=== PATIENT | male | born 1940 | race Caucasian/White ===

== ENCOUNTER 2018-01-22 10:40 | Day surgery (SDC) | payer MEDICARE ==
[2018-01-22] VITALS (10 sets, daily range): BP systolic 110–153; BP diastolic 51–83
[~2018-01-22] VITALS: Ht 167.6 cm; Wt 75.5 kg
[2018-01-22] MEDS ORDERED: normal saline 1000ml 1,000 ML IV SCH (11:05)
[2018-01-22] MEDS ORDERED: diphenhydrAMINE 25mg capsule PO PRN (11:05)
[2018-01-22] MEDS ORDERED: LORazepam 0.5 MG tablet PO PRN (11:05)
[2018-01-22] MEDS ORDERED: LISI-600 PO (11:19)
[2018-01-22] MEDS ORDERED: HYDR-3973 PO (11:19)
[2018-01-22] MEDS ORDERED: FISH1CAP15 PO (11:42)
[2018-01-22] MEDS ORDERED: CHOL2000 PO (11:42)
[2018-01-22] MEDS ORDERED: ASCO500C15 PO (11:42)
[2018-01-22] MEDS ORDERED: POLY17PO10 PO (11:42)
[2018-01-22] MEDS ORDERED: TADA5TAB2 PO (11:42)
[2018-01-22] MEDS ORDERED: SIME125T7 PO (11:42)
[2018-01-22] MEDS ORDERED: ASPI-611 PO (11:42)
[2018-01-22] MEDS ORDERED: SELE200T25 PO (11:42)
[2018-01-22] MEDS ORDERED: PHENYLEPHRINE (11:42)
[2018-01-22] MEDS ORDERED: [UNRECOGNIZED DRUG - CODE] (11:42)
[2018-01-22] MEDS ORDERED: CALC-1197 PO (11:42)
[2018-01-22] MEDS ORDERED: PSYL0.5215 (11:42)
[2018-01-22] MEDS ORDERED: ROSU5TAB11 PO (11:42)
[2018-01-22] MEDS ORDERED: MULT-1154 (11:42)
[2018-01-22] MEDS ORDERED: LACT1CAP65 PO (11:42)
[2018-01-22] MEDS ORDERED: midazolam 2 mg/2 ml injection ONE (11:50)
[2018-01-22] MEDS ORDERED: iohexol 350MG/ML 100ml bottle IV ONE (11:51)
[2018-01-22] MEDS ORDERED: fentaNYL/PF 50MCG/1 ML 2ML syringe ONE (11:51)
[2018-01-22] MEDS ORDERED: LIDOcaine 1% 30ml preserv. free vial ONE ×2 (11:51→12:45)
[2018-01-22 12:09] LABS: HEMATOCRIT 46.1 % (42.0-52.0); HEMOGLOBIN 15.4 g/dl (14.0-17.9); MEAN CORPUSCULAR HEMOGLOBIN 33.3 PG (27.0-31.0); MEAN CORPUSCULAR HGB CONC 33.5 % (33.0-36.5); MEAN CORPUSCULAR VOLUME 99.4 FL (78-98); MEAN PLATELET VOLUME 11.1 FL (7.4-10.4); PLATELET COUNT 181 X10'3 (140-440); RED BLOOD COUNT 4.64 X10'6 (4.70-6.10); RED CELL DISTRIBUTION WIDTH 13.2 % (11.5-14.5); WHITE BLOOD COUNT 9.1 X10'3 (4.5-11.0)
[2018-01-22 12:13] LABS: ALBUMIN 4.5 G/DL (3.4-5.0); ANION GAP 7 (8-16); BLOOD UREA NITROGEN 12 MG/DL (7-18); BUN/CREATININE RATIO 17.1 (5.4-32.0); CALCIUM 9.6 MG/DL (8.5-10.1); CHLORIDE 99 MMOL/L (99-107); GLUCOSE 100 MG/DL (70-104); SODIUM 134 MMOL/L (135-145); TOTAL CARBON DIOXIDE 27.8 MMOL/L (24-32); eGFR > 90 ML/MIN
[2018-01-22 12:14] LABS: POTASSIUM 4.4 MMOL/L (3.5-5.1)
[2018-01-22 12:22] LABS: PARTIAL THROMBOPLASTIN TIME 28 SECONDS (22-32); PROTHROMBIN TIME 10.4 SECONDS (9.0-12.0)
[2018-01-22] MEDS ORDERED: ondansetron/PF 4mg/2ml inj IV PRN (13:40)
[2018-01-22] MEDS ORDERED: proCHLORperazine 10 MG/2 ml inj IV PRN (13:40)
[2018-01-22] MEDS ORDERED: OXAZEpam 15mg capsule PO PRN (13:40)
[2018-01-22 13:52] LABS: ANISOCYTOSIS FEW; PLATELET ESTIMATE NORMAL; TOTAL CELLS COUNTED 100
== END 2018-01-22 17:00 | disposition home or self-care (01) ==
LOC: SSTAY O 10:40
PROVIDERS: ATTEND Internal Medicine Interventional Cardiology
DX: R94.39 Abnormal result of other cardiovascular function study (principal); I10 Essential (primary) hypertension; E78.5 Hyperlipidemia, unspecified; M19.90 Unspecified osteoarthritis, unspecified site; Z86.39 Personal history of other endocrine, nutritional and metabolic disease; Z86.2 Personal history of diseases of the blood and blood-forming organs and certain disorders involving the immune mechanism; Z88.2 Allergy status to sulfonamides; Z87.891 Personal history of nicotine dependence; Z79.82 Long term (current) use of aspirin; Z79.891 Long term (current) use of opiate analgesic; Z79.899 Other long term (current) drug therapy; Z98.890 Other specified postprocedural states
CPT/HCPCS: 36415; 80048; 85025; 85610; 85730; 93005; 93458; 99152; 99153; A6257; C1769; J1644; J2250; J3010; J3490; J7030; Q0163; Q9967; A4620

== ENCOUNTER 2025-01-24 12:41 | Outpatient (CLI) | payer OTHER ==
[~2025-01-24 12:41] MED LIST: ASCO500C18 PO; ASPI-611 PO; CALC-1215 PO; CHOL2000 PO; FISH1CAP15 PO; HYDR-3973 PO; LACT1CAP65 PO; LISI20TA28 PO; MULT-1154; PHENYLEPHRINE; POLY17PO10 PO; PSYL0.5215; ROSU5TAB51 PO; SELE200T25 PO; SIME125T7 PO; TADA5TAB2 PO; [UNRECOGNIZED DRUG - CODE]
--- NOTE | 2025-01-24 13:42 | RADIOLOGY REPORT ---
[facility] MR MRA HEAD INDICATION: TRANSIENT CEREBRAL ISCHEMIC ATTACK,UNSPECIFIED COMPARISON: None TECHNIQUE: Multiplanar, multisequence magnetic resonance imaging of the brain was performed without the use of i ntravenous contrast. FINDINGS: No evidence of acute or remote infarct. No intracranial hemorrhage. No mass effect. There is periventricular/deep white matter T2/FLAIR hyperintensity is nonspecific, but most commonly associated with chronic microvascular disease. The ventricles and sulci are normal in size for age. Clear basal cisterns. Flow voids in the major intracranial vessels are maintained. No abnormality of the orbits. Paranasal sinuses and mastoid air cells are clear. No abnormality of the visualized osseous structures and extracranial soft tissues. IMPRESSION: No acute infarct, intracranial hemorrhage, mass effect, or hydrocephalus.
== END 2025-01-24 23:59 | disposition home or self-care (01) ==
LOC: MRI02 12:41
PROVIDERS: ATTEND Family Medicine
DX: G45.9 Transient cerebral ischemic attack, unspecified (principal)
CPT/HCPCS: 70551